=== PATIENT | male | born 1955 | race Caucasian/White ===

== ENCOUNTER 2024-02-20 12:44 | Emergency (ER) | payer SELFPAY ==
[2024-02-20 12:45] VITALS: BP 102/60; PULSE 64; RESP 19; TEMP 36.7; O2SAT 100; BMI 23.0
[2024-02-20 13:00] VITALS: BP 77/51; BP 87/58; BP 92/59; PULSE 64; PULSE 67; PULSE 74
[2024-02-20 13:06] LABS: Basophils % 0.4 % (0.1-2.0); Eosinophils # 0.2 K/mm3 (0.0-0.4); Eosinophils % 2.5 % (0.1-12.0); Hematocrit 33.6 % (42.0-52.0); Hemoglobin 11.1 g/dL (14.1-18.0); Lymphocytes # 1.3 K/mm3 (0.7-4.5); Lymphocytes % 15.2 % (10-50); Mean Corpuscular Hemoglobin 37.1 pg (27.0-31.2); Mean Corpuscular Volume 112.5 fl (80-94); Mean Platelet Volume 8.1 fl (7.4-10.4); Monocytes # 0.3 K/mm3 (0.1-1.0); Monocytes % 3.1 % (1.7-9.3); Neutrophils # 6.9 K/mm3 (1.8-7.8); Neutrophils % 78.8 % (37.0-80.0); Platelet Count 364 K/mm3 (142-424); Red Blood Count 2.99 M/mm3 (4.60-6.20); Red Cell Distribution Width 15.1 % (11.5-17.5); White Blood Count 8.8 K/mm3 (4.8-10.8)
[2024-02-20 13:13] LABS: Alanine Aminotransferase 23 U/L (12-78); Albumin Level 2.9 g/dl (3.5-5.0); Alkaline Phosphatase 63 U/L (38-126); Anion Gap 11.6 mEq/L (5-15); Aspartate Amino Transferase 39 U/L (17-59); Bilirubin,Total 0.7 mg/dl (0.2-1.3); Blood Urea Nitrogen 10 mg/dl (9-20); Calcium 7.2 mg/dl (8.4-10.2); Carbon Dioxide 23 mmol/L (22.0-30.0); Chloride 101 mmol/L (98-107); Creatinine Clearance Estimated 78 mL/min (50-200); Estimated Glomerular Filt Rate 84 ml/min (>60); GFR (African American) 102 ML/MIN (>60); Globulin 2.9 g/dL (1.3-3.2); Glucose 109 mg/dl (74-100); INR 1.08 (0.9-1.1); Lipase 124 U/L (23-300); Phosphorous 3.4 mg/dl (2.5-4.5); Sodium 133 mmol/L (136-145); Total Protein,Serum 5.8 g/dl (6.3-8.2)
--- NOTE | 2024-02-20 13:15 | ECG_ITS ---
APPROVED REPORT Exam: Resting ECG HR:64 bpm ECG Measurements Heart Rate 64 AXES TX 165 P 101 QRSd 91 QRS 7 QT 430 T 25 QTc 440 Conclusion SINUS RHYTHM WITH FREQUENT ECTOPIC PREMATURE COMPLEXES LOW QRS VOLTAGE IN EXTREMITY LEADS [QRS DEFLECTION < 0.5 mV IN LIMB LEADS] MODERATE ST DEPRESSION [0.05+ mV ST DEPRESSION] ABNORMAL ECG Electronically signed by : JAMESON JUNE, 02/20/2024 15:27:56
[2024-02-20 13:16] LABS: Magnesium 0.7 mg/dl (1.6-2.3); Potassium 2.6 mmoL/L (3.5-5.1)
[2024-02-20] MEDS: LACTATED RINGERS 1000ML 1,000 ML 999 ML IV (13:23)
[2024-02-20 13:26] LABS: Troponin I < 0.01 ng/ml (0.00-0.034)
[2024-02-20 13:27] LABS: VBG Base Excess -1.4 mmol/L (-2.4-2.3); VBG HCO3 23.6 mmol/L (23-30); VBG PCO2 39.9 mmol/L (35-51); VBG PH 7.39 mmol/L (7.31-7.41); VBG PO2 51.7 mmol/L (28-40); VBG Total CO2 24.8 mmol/L (23-27)
--- NOTE | 2024-02-20 13:30 | PC.NURSE ---
LACTIC 4.49 RECEIVED FROM RESPIRATORY, PT NAME AND R/V. DR JUNE NOTIFIED
[2024-02-20 13:31] LABS: Lactate Venous 4.5 mmol/L (0.4-2.0)
--- NOTE | 2024-02-20 13:36 | PC.NURSE ---
went into pts room to hook him up to auto radiator specialist. instructed pt that he needed to be given IV potassium and oral potassium. pt states that he does not want to take any medications or have any scans done. pt states i did not want to come here. the ambulance made me. i do not have a ride home and you need to find me one. informed ER MD about situation
--- NOTE | 2024-02-20 13:39 | PC.NURSE ---
call made to [facility] for pts ride home.
--- NOTE | 2024-02-20 13:55 | PC.NURSE ---
pt called nurse into room asking to take out IV. instructed pt that MD will speak with him about staying. pt adament that he leave.
[2024-02-20 13:56] VITALS: BP 77/51; PULSE 60; RESP 16; TEMP 36.7
--- NOTE | 2024-02-20 14:55 | ED_ITS ---
Discharge Plan Disposition Patient Disposition: Left Against Medical Advice Condition: Fair Referrals Follow up/Referrals: Provider,Referral, [Primary Care Provider] - See instructions Activity Restrictions/Add. Instructions Additional Instructions/Restrictions: You were evaluated in the ER today. Your blood pressure is dangerously low. You also have critically low potassium, which can cause fatal heart arrhythmias and can cause sudden . This is incredibly dangerous, and we recommend admission for fluids and potassium replacement. By going home, you are at incredibly high risk of . You are leaving AGAINST MEDICAL ADVICE. If you change your mind or want to be admitted, please come back right away or present right away to another ER. Clinical Impressions Clinical Impression: Orthostatic hypotension, Acidosis, lactic, Hypokalemia Instructions Patient Instructions: DI for Orthostatic Hypotension, DI for Hypokalemia Print Language Print Language: [place] Discharge ED Provider: Anuja Zaidi General Adult HPI General Chief complaint: Dizziness Stated complaint: Weakness Time Seen by Provider: 02/20/24 12:49 Mode of Arrival: EMS Source of Information: Patient Limitations: No Limitations Description of Symptoms (Recalled from ER Triage Doc. by RN): pt presents to ED with c/o dizziness. pt [place] he was at the [place] station when he became dizzy and sat down. someone there called ems. History of Present Illness HPI narrative: This patient is a 69-year-old male who denies significant past medical history who does not follow regularly with a doctor presenting with concern for near syncope. Patient was at a gas station when he felt very lightheaded and had to sit down. EMS was called to the scene by bystanders, and patient initially refused EMS transport stating he did not want to be evaluated at the hospital. He tried to get up and walk away, but then he had to sit down again. Given this, EMS brought him in for evaluation. He currently states he does not want to be here. He is alert and oriented x 4 and denies any specific concerns or complaints. He states that he was sitting at the gas station when he suddenly felt lightheaded like he was going to pass out and had to sit down. He denies any headache, vision changes, numbness, tingling, chest pain, shortness of breath, abdominal pain, or other concerns. He does not take any medications regularly. Related Data Allergies Allergy/AdvReac Type Severity Reaction Status Date / Time No Known Allergies Allergy Verified 02/20/24 13:21 [facility] Disclaimer: The information contained in this section may have been updated after the patient was seen, as this information can be updated by other users. Social History Smoking Status: Current every day smoker alcohol intake: never current occupational status: retired Travel in the last 8 weeks: None ROS Obtained: Yes All systems reviewed & no additional complaints except as documented Physical Exam General General appearance: alert and in no apparent distress Comment: Thin, frail, chronically ill-appearing Head Head exam: atraumatic and normocephalic Eye Eye exam: Present normal appearance, PERRL and EOMI ENT ENT exam: Present mucous membranes dry and normal external ear exam Neck Neck exam: Present normal inspection, full ROM and trachea midline; Absent tenderness Chest Chest inspection: Present normal inspection and symmetric chest wall rise; Absent tenderness Respiratory Respiratory exam: Present normal lung sounds bilaterally; Absent respiratory distress, wheezes, stridor or accessory muscle use Cardiovascular Cardiovascular exam: Present regular rate and normal rhythm Abdominal Exam Abdominal exam: Present soft; Absent distention, tenderness or guarding Extremities Exam Extremities exam: Present normal inspection, full ROM and normal capillary refill; Absent tenderness or edema Back Exam Back exam: Present normal inspection and full ROM; Absent tenderness Neurological Exam Neurological exam: Present alert, oriented X3, CN II-XII intact and normal gait; Absent motor sensory deficit Psychiatric Psychiatric exam: Present normal affect and normal mood Skin Skin exam: Present warm and dry Medical Decision Making Medical Records Medical records reviewed: Yes I reviewed the patient's medical records. Donte Inquiry Pt receiving controlled substance: No Vital Signs: 02/20/24 12:45 02/20/24 13:00 02/20/24 13:56 Temperature 98.0 F 98.0 F Temperature Source Oral Pulse Rate 60 Pulse Rate [Left Radial] 64 Pulse Rate [Orthostatic Lying Right Radial] 67 Pulse Rate [Orthostatic Sitting Right Radial] 74 Pulse Rate [Orthostatic Standing Right Radial] 64 Respiratory Rate 19 16 Blood Pressure 77/51 L Blood Pressure [Orthostatic Lying Right Arm] 87/58 L Blood Pressure [Orthostatic Sitting Right Arm] 92/59 L Blood Pressure [Orthostatic Standing Right Arm] 77/51 L Blood Pressure [Right Arm] 102/60 L Blood Pressure Mean [Right Arm] 74 02 Sat by Pulse Oximetry 100 Oxygen Delivery Method Room Air Lab Data Lab results reviewed: Yes I reviewed the patient's lab results. Lab Results 02/20/24 12:53: WBC 8.8, RBC 2.99 L, Hgb 11.1 L, Hct 33.6 L, MCV 112.5 H, MCH 37.1 H, MCHC 33.0, RDW 15.1, Plt Count 364, MPV 8.1, Neut % (Auto) 78.8, Lymph % (Auto) 15.2, [place] % (Auto) 3.1, Eos % (Auto) 2.5, Baso % (Auto) 0.4, Neut # (Auto) 6.9, Lymph # (Auto) 1.3, [place] # (Auto) 0.3, Eos # (Auto) 0.2, Baso # (Auto) 0.0, PT 12.0, INR 1.08, APTT 27.0, Sodium 133 L, Potassium 2.6 L*, Chloride 101, Carbon Dioxide 23, Anion Gap 11.6, BUN 10, Creatinine 0.90, Estimated Creat Clear 78, Estimated GFR 84, Est GFR ( Amer) 102, Glucose 109 H, Calcium 7.2 L, Phosphorus 3.4, Magnesium 0.7 L, Total Bilirubin 0.7, AST 39, ALT 23, Alkaline Phosphatase 63, Troponin I < 0.01, Total Protein 5.8 L, A lbumin 2.9 L, Globulin 2.9, Albumin/Globulin Ratio 1.0 L, Lipase 124 02/20/24 13:20: VBG pH 7.39, VBG pCO2 39.9, VBG pO2 51.7 H, VBG HCO3 23.6, VBG Total CO2 24.8, VBG O2 Saturation 83.0 H, VBG Base Excess -1.4, VBG Lactic Acid 4.5 H 02/20/24 12:53 02/20/24 12:53 Orders (Tests/Meds): ED MEDICATIONS Discontinued Medications Generic Name Dose Route Start Last Admin Trade Name Freq PRN Reason Stop Dose Admin Lactated Ringer's 1,000 mls @ 999 mls/hr 02/20/24 13:10 02/20/24 13:23 Lactated Ringer's 1000 Ml Bag IV 02/20/24 14:10 999 mls/hr .Q1H1M ONE Administration Potassium Chloride/Water 100 mls @ 100 mls/hr 02/20/24 13:26 Potassium Chloride 10meq/100ml Ivpb IV 02/20/24 15:25 Q1H MARYLU Potassium Chloride 40 meq 02/20/24 13:26 Potassium Chloride 20meq Tab PO 02/20/24 13:27 ONCE ONE ORDERS Category Date Time Status Activated Partial Thrombo Time Stat Lab 02/20/24 12:53 Completed Complete Blood Count Auto Diff Stat Lab 02/20/24 12:53 Completed Comprehensive Metabolic Panel Stat Lab 02/20/24 12:53 Completed Lipase Stat Lab 02/20/24 12:53 Completed MAG [Magnesium] Stat Lab 02/20/24 12:53 Completed PHOS [Phosphorous] Stat Lab 02/20/24 12:53 Completed Prothrombin Time INR Stat Lab 02/20/24 12:53 Completed Trop I [Troponin I] Stat Lab 02/20/24 12:53 Completed VBG [Venous Blood Gas] Stat RT 02/20/24 13:20 Completed ECG Data Tracing #1: I reviewed this ECG and interpreted as documented below: Normal sinus rhythm with a ventricular rate of 64 bpm. Frequent ectopic premature complexes. No acute STEMI. ECG initial impression date: 02/20/24 ECG initial impression time: 14:00 Medical Decision Narrative: In summary, this patient is a 69-year-old male presenting to the Emergency Department for evaluation of lightheadedness and near syncope. Differential diagnoses considered include but are not limited to dehydration, electrolyte derangements, ACS, dysrhythmia, CVA. Ruling out the most morbid conditions drove assessment. On exam, the patient is chronically ill-appearing, thin, and frail. He appears dry with dry mucous membranes. Workup included broad lab evaluation to evaluate for infectious, metabolic, or cardiac etiology as well as CT stroke workup and CTA of the chest. EKG obtained demonstrates low voltage but no acute STEMI. Labs obtained are concerning for anemia, lactic acidosis, hyponatremia, significant hypokalemia with a potassium of 2.6, hypomagnesemia with a magnesium of 0.7, hypocalcemia with a calcium of 7.2. Patient also has hypoalbuminemia. He had positive orthostatic vital signs with systolic drop to the 70s upon standing. Given these findings, I ordered the patient fluid resuscitation as well as IV potassium replacement. Ultimately, the patient had up refusing IV fluids, IV potassium, or any other intervention. He also refused imaging. I explained to him what we are looking for and the reason for giving him fluids and potassium. I explained that potassium being critically low like this could cause fatal heart rhythms and could cause his heart to stop suddenly. He stated that there is nothing wrong with his heart and he is not staying here. He is alert and oriented x 4 and answers all questions appropriately, so I do not feel that we can hold him here against his will for treatment. He called for a ride and stated that his ride is on the way here and he is ready to go now. He states he does not want to talk about it anymore, as he did not want to come here in the first place and was forced to come against as well by EMS. Patient left AGAINST MEDICAL ADVICE and understands all the risks in doing so. Advised that should he change his mind we would be happy to evaluate him here, and I encouraged him to seek evaluation anywhere right away. Critical Care Critical Care Time Critical Care Time: No
[2024-02-20 17:30] LABS: Reflex Lactic Add Lactic Reflex
== END 2024-02-20 13:57 | disposition left against medical advice (07) ==
PROVIDERS: Emergency Provider Emergency Medicine
DX: I95.1 Orthostatic hypotension (principal); R74.02 Elevation of levels of lactic acid dehydrogenase [LDH]; E87.29 Other acidosis; E87.6 Hypokalemia; R42 Dizziness and giddiness; F17.210 Nicotine dependence, cigarettes, uncomplicated; I49.3 Ventricular premature depolarization; E87.1 Hypo-osmolality and hyponatremia; E83.42 Hypomagnesemia; E83.51 Hypocalcemia; Z91.199 Patient's noncompliance with other medical treatment and regimen due to unspecified reason
CPT/HCPCS: 80053; 82803; 83690; 83735; 84100; 84484; 85025; 85610; 85730; 93005; 99284; J7120